=== PATIENT | female | born 1990 | race Caucasian/White ===

== ENCOUNTER → 2021-01-16 15:25 | Outpatient (BNVA) | payer OTHER, SELFPAY | PROVIDERS: Family Provider Family Medicine; PCP Family Medicine; Visit Provider Nurse Practitioner Family | DX: N39.0 Urinary tract infection, site not specified (principal); B37.3 Candidiasis of vulva and vagina | CPT/HCPCS: 81000 ==

== ENCOUNTER → 2023-02-09 15:02 | Outpatient (BNVA) | payer OTHER, SELFPAY | PROVIDERS: Family Provider Family Medicine; PCP Family Medicine; Visit Provider Nurse Practitioner | DX: R39.9 Unspecified symptoms and signs involving the genitourinary system (principal); N30.01 Acute cystitis with hematuria | CPT/HCPCS: 81000 ==

== ENCOUNTER → 2024-08-22 11:31 | Outpatient (BNVA) | payer OTHER, SELFPAY | PROVIDERS: Family Provider Family Medicine; PCP Family Medicine | DX: R39.9 Unspecified symptoms and signs involving the genitourinary system (principal) | CPT/HCPCS: 81000; 87086 ==

== ENCOUNTER → 2024-08-29 16:20 | Outpatient (BNVA) | payer OTHER, SELFPAY | PROVIDERS: Family Provider Family Medicine; PCP Family Medicine; Visit Provider Nurse Practitioner | DX: R39.9 Unspecified symptoms and signs involving the genitourinary system (principal); N39.0 Urinary tract infection, site not specified | CPT/HCPCS: 81000; 87086 ==

== ENCOUNTER → 2024-10-03 15:24 | Outpatient (BNVA) | payer OTHER, SELFPAY | PROVIDERS: Family Provider Family Medicine; PCP Family Medicine; Visit Provider Nurse Practitioner | DX: R50.9 Fever, unspecified (principal) | CPT/HCPCS: 87400 ==

== ENCOUNTER → 2025-03-08 14:44 | Outpatient (BNVA) | payer OTHER, SELFPAY | PROVIDERS: Family Provider Family Medicine; PCP Family Medicine; Visit Provider Emergency Medicine | DX: R39.9 Unspecified symptoms and signs involving the genitourinary system (principal) | CPT/HCPCS: 81000 ==